=== PATIENT | male | born 1985 | race Hispanic/Latino ===

== ENCOUNTER 2018-10-29 16:23 | Emergency (ER) | payer SELFPAY | END 2018-10-29 17:36 | disposition home or self-care (01) | LOC: EDH 16:23 | DX: S83.8X1A Sprain of other specified parts of right knee, initial encounter (principal); Z72.0 Tobacco use; W18.39XA Other fall on same level, initial encounter; Y93.67 Activity, basketball; Y92.39 Other specified sports and athletic area as the place of occurrence of the external cause; Y99.8 Other external cause status | CPT/HCPCS: 73562 ==

== ENCOUNTER 2019-02-12 15:31 | Emergency (ER) | payer SELFPAY ==
[2019-02-12] MEDS ORDERED: SODIUM CHLORIDE 0.9% 1000ML 1,000 ML IV ONE (16:41)
[2019-02-12] MEDS ORDERED: ONDANSETRON HCL 4 MG/2 ML VIAL ONE (16:42)
[2019-02-12] MEDS ORDERED: MORPHINE SULFATE 4 MG/1ML SYG ONE (16:42)
[2019-02-12] MEDS ORDERED: KETOROLAC TROMETHAMINE 30MG/ML ONE (16:42)
[2019-02-12 16:45] LABS: BASOPHILS % (AUTO) 0.6 % (0.0-5.0); EOSINOPHILS % (AUTO) 0.5 % (0.0-8.0); HEMATOCRIT 53.1 % (42-54); LYMPHOCYTES % (AUTO) 12.1 % (21.0-51.0); MEAN CORPUSCULAR HEMOGLOBIN 27.7 pg (27.0-33.0); MEAN CORPUSCULAR HGB CONC 33.7 g/dL (32.0-36.0); MEAN CORPUSCULAR VOLUME 82.2 fL (79-99); NEUTROPHILS % (AUTO) 81.8 % (40.0-77.0); PLATELET COUNT (AUTO) 323 K/uL (130-400); RED BLOOD CELL COUNT(AUTO) 6.45 MIL/uL (4.50-6.20); RED CELL DISTRIBUTION WIDTH 13.4 % (11.0-15.5); WHITE BLOOD COUNT (AUTO) 9.1 K/uL (4.8-10.8)
[2019-02-12 16:49] LABS: APPEARANCE,URINE Clear (CLEAR); BILIRUBIN,URINE Negative (NEGATIVE); COLOR,URINE Dark Yellow (YELLOW); GLUCOSE, URINE (UA) Negative (NEGATIVE); KETONES,URINE >=80 mg/dL (NEGATIVE); LEUKOCYTE ESTERASE ,URINE Negative (NEGATIVE); NITRATE,URINE Negative (NEGATIVE); OCCULT BLOOD,URINE Negative (NEGATIVE); PROTEIN,URINE POS 1+ mg/dL (NEGATIVE)
[2019-02-12 17:02] LABS: CREATININE 1.2 mg/dL (0.5-1.5); POTASSIUM 4.2 mmol/L (3.5-5.1)
[2019-02-12 17:05] LABS: ALBUMIN 3.6 g/dL (3.5-5.0); BILIRUBIN,TOTAL 0.4 mg/dL (0.2-1.0); TOTAL PROTEIN, SERUM 6.8 g/dL (6.0-8.3)
[2019-02-12] MEDS ORDERED: IOHEXOL-350 75 ML VIAL IV ONE (17:06)
[2019-02-12 17:30] LABS: BACTERIA,URINE Few /HPF (None Seen)
[2019-02-12 17:31] LABS: MUCUS,URINE Few LPF (None Seen); RBC,URINE 0-1 /HPF (0-1); WBC,URINE 0-1 /HPF (0-1)
== END 2019-02-12 18:54 | disposition home or self-care (01) ==
LOC: EDH 15:31
DX: R10.13 Epigastric pain (principal); R10.32 Left lower quadrant pain; R11.2 Nausea with vomiting, unspecified; R00.2 Palpitations; R19.7 Diarrhea, unspecified; Z72.0 Tobacco use
CPT/HCPCS: 36415; 74177; 80053; 81001; 83690; 85025; 87040 ×2; 87804 ×2; 96361; 96374; 96375; 99285; J1885; J2270; J2405; J7030; Q9967

== ENCOUNTER 2020-05-12 18:46 | Emergency (ER) | payer OTHER ==
[2020-05-12] MEDS ORDERED: METOCLOPRAMIDE 10 MG/2 ML VIAL ONE (19:16)
[2020-05-12] MEDS ORDERED: ONDANSETRON HCL 4 MG/2 ML VIAL ONE (19:16)
[2020-05-12] MEDS ORDERED: FAMOTIDINE/PF 20 MG/2 ML VIAL IV ONE (19:17)
[2020-05-12 19:19] LABS: BASOPHILS % (AUTO) 0.3 % (0.0-5.0); HEMATOCRIT 47.8 % (42-54); MEAN CORPUSCULAR HEMOGLOBIN 28.7 pg (27.0-33.0); MEAN CORPUSCULAR HGB CONC 32.8 g/dL (32.0-36.0); MEAN CORPUSCULAR VOLUME 87.4 fL (79-99); MONOCYTES % (AUTO) 6.9 % (3.0-13.0); NEUTROPHILS % (AUTO) 82.4 % (40.0-77.0); PLATELET COUNT (AUTO) 363 K/uL (130-400); RED BLOOD CELL COUNT(AUTO) 5.47 MIL/uL (4.50-6.20); RED CELL DISTRIBUTION WIDTH 12.8 % (11.0-15.5); WHITE BLOOD COUNT (AUTO) 18.4 K/uL (4.8-10.8)
[2020-05-12 19:20] LABS: APPEARANCE,URINE Clear (CLEAR); BILIRUBIN,URINE Negative (NEGATIVE); COLOR,URINE Yellow (YELLOW); GLUCOSE, URINE (UA) Negative (NEGATIVE); KETONES,URINE Negative (NEGATIVE); LEUKOCYTE ESTERASE ,URINE Trace (NEGATIVE); NITRATE,URINE Negative (NEGATIVE); OCCULT BLOOD,URINE Negative (NEGATIVE); PROTEIN,URINE POS 1+ mg/dL (NEGATIVE)
[2020-05-12 19:29] LABS: POTASSIUM 4.2 mmol/L (3.5-5.1)
[2020-05-12 19:32] LABS: BACTERIA,URINE Rare /HPF (None Seen); RBC,URINE 0-1 /HPF (0-1); SQUAMOUS EPITHELIAL CELL,UR Few /HPF (0-2)
[2020-05-12 19:39] LABS: ALBUMIN 2.7 g/dL (3.5-5.0); BILIRUBIN,TOTAL 0.7 mg/dL (0.2-1.0); TOTAL PROTEIN, SERUM 6.8 g/dL (6.0-8.3)
[2020-05-12] MEDS ORDERED: SODIUM CHLORIDE 0.9% 1000ML 1,000 ML IV ONE (21:32)
[2020-05-12] MEDS ORDERED: MORPHINE SULFATE 4 MG/1ML SYG ONE (21:33)
[2020-05-12] MEDS ORDERED: DEXAMETHASONE SOD PHOSPHATE 10MG/ML 1ML VIAL ONE (22:15)
[2020-05-12] MEDS ORDERED: ORPHENADRINE CITRATE 30 MG/ML ML ONE (22:15)
[2020-05-12] MEDS ORDERED: KETOROLAC TROMETHAMINE 30MG/ML ONE (22:16)
[2020-05-12] MEDS ORDERED: AZITHROMYCIN 500MG+NS 250ML 250 ML IV ONE (22:16)
[2020-05-12] MEDS ORDERED: CEFTRIAXONE SODIUM 1 GM ONE (22:16)
== END 2020-05-12 23:14 | disposition home or self-care (01) ==
LOC: EDH 18:46
DX: J18.9 Pneumonia, unspecified organism (principal); M54.9 Dorsalgia, unspecified; Z20.828 Contact with and (suspected) exposure to other viral communicable diseases
CPT/HCPCS: 36415; 74176; 76705; 80053; 81001; 83605; 83690; 84484; 85025; 87426; 93005; 96361 ×2; 96365; 96375; 99285; J0456; J0696; J1100; J1885; J2270; J2360; J2405; J2765; J3490; J7030; U0003